=== PATIENT | male | born 2000 | race Caucasian/White ===

== ENCOUNTER 2022-05-15 06:48 | Emergency (ER) | payer BC ==
[~2022-05-15] VITALS: Ht 152.4 cm; Wt 93.8 kg
[~2022-05-15 06:48] MED LIST: AMOXICILLIN500 MG PO; AMOXIL400 MG/5 M OR; BENADRYL A12.5 MG/1 OR; NO MEDS; OMNICE1 OR; PENICILLN VK500 MG PO
[2022-05-15 07:13] VITALS: BP 118/66
[2022-05-15 07:15] VITALS: BP 115/65
[2022-05-15 08:31] VITALS: BP 115/65
== END 2022-05-15 08:33 | disposition home or self-care (01) | DRG 179 ==
LOC: ED 06:48
DX: U07.1 COVID-19 (principal); B35.4 Tinea corporis